=== PATIENT | male | born 1985 | race African-American/Black ===

== ENCOUNTER 2017-07-18 17:40 | Emergency (ER) | payer OTHER ==
[2017-07-18 17:48] VITALS: BP 160/100; PULSE 84; TEMP 97.9; BMI 34.9
--- NOTE | 2017-07-18 17:49 | PDOC ---
Rapid Medical Evaluation Time Seen by Provider: 07/18/17 17:42 Medical Evaluation: Allergies Allergy/AdvReac Type Severity Reaction Status Date / Time No Known Allergies Allergy Verified 10/16/15 12:48 07/18/17 17:43 The patient presents with a chief complaint of: R ankle pain. Started two days ago. States the pain started at work. Works as a broiler chef or cook. Denies trauma, falling. I have performed a brief in-person evaluation of this patient; Pertinent physical exam findings. TTP of the medial malleolus and cuboid. I have ordered the following: R ankle x-ray The patient will proceed to the ED for further evaluation.
[2017-07-18] MEDS ORDERED: KETOROLAC TROMETHAMINE 60 MG/2 ML VIAL IM ONE (18:59)
[2017-07-18] MEDS ORDERED: KETOROLAC TROMETHAMINE 60 MG/2 ML VIAL ONE (19:08)
--- NOTE | 2017-07-18 19:11 | PDOC ---
History of Present Illness - General Chief Complaint: Pain Stated Complaint: ANKLE PAIN Time Seen by Provider: 07/18/17 17:42 History Source: Patient Exam Limitations: No Limitations - History of Present Illness Initial Comments: 07/18/17 19:02 Patient is a [32 y/o male denies any significant medical history presents emergency Department with pain to plantar surface of right foot. Has pes planus. 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 Denies injury ] Past Medical History: [Denies]. Allergies: No known allergies Medications: [NOne] Family History: Non-contributory Social History: Denies smoking, alcohol use, or IVDU Review of Systems GENERAL/CONSTITUTIONAL: [No fever or chills. No weakness. No weight change.] HEAD, EYES, EARS, NOSE AND THROAT: [No change in vision. No ear pain or discharge. No sore throat. ] CARDIOVASCULAR: [No chest pain or shortness of breath.] RESPIRATORY: [No cough, wheezing, or hemoptysis.] GASTROINTESTINAL: [No nausea, vomiting, diarrhea or constipation. No rectal bleeding.] GENITOURINARY: [No dysuria, frequency, or change in urination.] MUSCULOSKELETAL: [No joint or muscle swelling or pain. No neck or back pain. Pain to plantar surface of right foot inferior to heal] SKIN : [No rash or easy bruising. No erythema or edema] NEUROLOGIC: [No headache, vertigo, loss of consciousness, or loss of sensation.] ENDOCRINE: [No increased thirst. No abnormal weight change.] HEMATOLOGIC/LYMPHATIC: [No anemia, easy bleeding, or history of blood clots.] ALLERGIC/IMMUNOLOGIC: [No hives or skin allergy. No latex allergy.] Physical Exam: GENERAL: [The patient is awake, alert, and fully oriented, in no acute distress. ] HEAD: [Normal with no signs of trauma.] EYES: [Pupils equal, round and reactive to light, extraocular movements intact, sclera anicteric, conjunctiva clear.] ENT: [Ears normal, nares patent, oropharynx clear without exudates. Moist mucous membranes. No uvula deviation] NECK: [Normal range of motion, supple without lymphadenopathy, JVD, or masses.] LUNGS: [Breath sounds equal, clear to auscultation bilaterally. No wheezes, and no crackles.] HEART: [Regular rate and rhythm, normal S1 and S2 without murmur, rub or gallop. ] ABDOMEN: [Soft, nontender, normoactive bowel sounds. No guarding, no rebound. No masses. No bruising or abrasions] MUSCULOSKELETAL: [Normal range of motion, no edema. No clubbing or cyanosis. No cords, erythema, or tenderness. Pain on palpation to plantar surface of right foot , heel there is no erythema or edema, no bruising] NEUROLOGICAL: [Cranial nerves II through XII grossly intact. Normal speech, normal gait.] SKIN: [Warm, Dry, normal turgor, no rashes or lesions noted.] Past History - Past Medical History Allergies/Adverse Reactions: Allergies Allergy/AdvReac Type Severity Reaction Status Date / Time No Known Allergies Allergy Verified 07/18/17 17:48 Home Medications: Ambulatory Orders Ibuprofen [Motrin -] 600 mg PO QID #28 tablet 07/18/17 Anemia: No Asthma: No Cancer: No Cardiac Disorders: No CVA: No COPD: No CHF: No Dementia: No Diabetes: No GI Disorders: No Disorders: No HTN: No Hypercholesterolemia: No Liver Disease: No Seizures: No Thyroid Disease: No - Immunization History Immunization Up to Date: No - Suicide/Smoking/Psychosocial Hx Smoking History: Never smoked Hx Alcohol Use: No Drug/Substance Use Hx: No Substance Use Type: None Hx Substance Use Treatment: No *Physical Exam - Vital Signs Last Vital Signs Temp Pulse Resp BP Pulse Ox 97.9 F 84 18 160/100 97 07/18/17 17:46 07/18/17 17:46 07/18/17 17:46 07/18/17 17:46 07/18/17 18:37 Medical Decision Making - Medical Decision Making 07/18/17 19:11 A/P: Patient here for evaluation of right foot pain. Clinical presentation most likely plantar fasciitis, Toradol 60 mg IM 1 given patient sent to x-ray. Will apply Scotty wrap. 07/18/17 19:33 X-ray wet read demonstrates a calcification to the calcaneus area, Case discussed with Dr. Ruano no acute fracture patient with a tendinitis will DC patient home Scotty wrap, ice to heal and anti-inflammatories follow-up with orthopedics 07/18/17 19:40 *DC/Admit/Observation/Transfer Diagnosis at time of Disposition: Tendinitis of ankle or foot - Discharge Dispostion Disposition: HOME Condition at time of disposition: Stable Admit: No - Prescriptions Prescriptions: Ibuprofen [Motrin -] 600 mg PO QID #28 tablet - Referrals Referrals: Drake Simental MD [Staff Physician] - - Patient Instructions Printed Discharge Instructions: DI for Tendinitis Additional Instructions: Please apply ice to heal Encouraged use of arch support, not until symptoms have resolved Anti-inflammatories for pain If symptoms do not start to resolve in 3 days recommend follow-up with orthopedics - Post Discharge Activity Forms/Work/School Notes: Back to Work
== END 2017-07-18 19:40 | disposition home or self-care (01) ==
LOC: JERFT 17:40
PROC: 3E0233Z Introduction of Anti-inflammatory into Muscle, Percutaneous Approach (ICD-10-PCS; principal; 2017-07-18)
DX: M77.51 Other enthesopathy of right foot and ankle (principal)
CPT/HCPCS: 73610-TC-RT; 73630-TC-RT; 99281-25

== ENCOUNTER 2018-02-07 16:09 | Emergency (ER) | payer OTHER ==
--- NOTE | 2018-02-07 17:11 | PDOC ---
Rapid Medical Evaluation Time Seen by Provider: 02/07/18 17:06 Medical Evaluation: Allergies Allergy/AdvReac Type Severity Reaction Status Date / Time No Known Allergies Allergy Verified 07/18/17 17:48 02/07/18 17:06 Pt presents to the ED for headaches on and off 3 weeks. Admits to associated dizziness and light headedness. Pt is concerned he may have diabetes as it runs in his family. Also admits to polydipsea and polyuria Exam: Ambulatory, no gross neuro deficits. AAOx3 Orders: CBC, CMP, UA Pt to proceed to ED for further evaluation. Discharge Disposition - Diagnosis Headache - Referrals - Patient Instructions - Post Discharge Activity
[2018-02-07 17:19] VITALS: BP 139/64; PULSE 85; TEMP 98.6; BMI 36.1
[2018-02-07 19:17] LABS: BASO % 0.9 % (0-2.0); EOS % 2.3 % (0-4.5); HEMATOCRIT 43.9 % (35.4-49); HEMOGLOBIN 13.9 GM/dL (11.7-16.9); LYMPH % 33.8 % (8-40); MCH 22.2 pg (25.7-33.7); MCHC 31.6 g/dl (32.0-35.9); MEAN CELL VOLUME 70.3 fl (80-96); MEAN PLT VOLUME 8.8 fl (7.5-11.1); MONO % 8.1 % (3.8-10.2); NEUT % 54.9 % (42.8-82.8); PLATELET COUNT 471 K/MM3 (134-434); RBC 6.24 M/mm3 (4.00-5.60); RDW 17.7 % (11.9-15.9); WHITE BLOOD COUNT 9.5 K/mm3 (4.0-10.0)
[2018-02-07 19:39] LABS: ANION GAP 6 (8-16); BILIRUBIN,TOTAL 0.6 mg/dL (0.2-1.0); BLOOD UREA NITROGEN 9 mg/dL (7-18); CHLORIDE 104 mmol/L (98-107); CO2 30 mmol/L (21-32); CREATININE 0.9 mg/dL (0.7-1.3); GLUCOSE,RANDOM 81 mg/dL (74-106); SGOT/AST 39 U/L (15-37); SGPT/ALT 75 U/L (12-78); SODIUM 140 mmol/L (136-145); TOT PROT 7.8 g/dl (6.4-8.2)
[2018-02-07 19:40] LABS: ALK PHOS 88 U/L (45-117)
--- NOTE | 2018-02-07 19:42 | PDOC ---
History of Present Illness - General Chief Complaint: Headache Stated Complaint: FATIGUE Time Seen by Provider: 02/07/18 17:06 History Source: Patient Exam Limitations: No Limitations Past History - Past Medical History Allergies/Adverse Reactions: Allergies Allergy/AdvReac Type Severity Reaction Status Date / Time No Known Allergies Allergy Verified 02/07/18 17:09 Home Medications: Ambulatory Orders NK [No Known Home Medication] 02/07/18 Anemia: No Asthma: No Cancer: No Cardiac Disorders: No CVA: No COPD: No CHF: No Dementia: No Diabetes: No GI Disorders: No Disorders: No HTN: No Hypercholesterolemia: No Liver Disease: No Seizures: No Thyroid Disease: No - Surgical History Cardiac Surgery: No Gastric Stapling: No - Immunization History Immunization Up to Date: No - Suicide/Smoking/Psychosocial Hx Smoking History: Never smoked Information on smoking cessation initiated: No Hx Alcohol Use: No Drug/Substance Use Hx: No Substance Use Type: None Hx Substance Use Treatment: No *Physical Exam - Vital Signs Last Vital Signs Temp Pulse Resp BP Pulse Ox 98.6 F 85 16 139/64 98 02/07/18 17:09 02/07/18 17:09 02/07/18 17:09 02/07/18 17:09 02/07/18 17:09 ED Treatment Course - LABORATORY CBC & Chemistry Diagram: 02/07/18 19:00 02/07/18 19:00 - ADDITIONAL ORDERS Additional order review: 02/07/18 19:00 RBC 6.24 H MCV 70.3 L MCHC 31.6 L RDW 17.7 H MPV 8.8 Neutrophils % 54.9 D Lymphocytes % 33.8 D Monocytes % 8.1 Eosinophils % 2.3 D Basophils % 0.9 *DC/Admit/Observation/Transfer Diagnosis at time of Disposition: Headache Qualifiers: Headache type: unspecified Headache chronicity pattern: unspecified pattern Intractability: not intractable Qualified Code(s): R51 - Headache - Referrals Referrals: Isael Orellana MD [Staff Physician] - Dipak Benavides MD [Staff Physician] - - Patient Instructions Printed Discharge Instructions: DI for Headache - Post Discharge Activity Forms/Work/School Notes: Back to Work
--- NOTE | 2018-02-07 20:26 | PDOC ---
Attending Attestation - HPI HPI: 02/07/18 20:42 The patient is a 32 year old male, with no significant PMH, who presents to the emergency department with 3 weeks of intermittent left sided headache. The patient states he experiences the left sided headaches while at work, described as a throbbing pain, rated 10/10 in intensity, with associated dizziness, tinnitus and nausea, that last for approx 5-30 minutes before resolving on its own. The patient states the left sided headaches sometimes radiates to his jaw region. The patient states he has not taken any medication for the headaches. The patient reports he is under increased stressors at work as he works as a administrative manager. The patient states he does not have the headache at presentation as they occur while he is at work. The patient denies any photophobia or phonophobia. The patient denies any auras, blurry vision or loss of vision. The patient denies any change in strength or sensation, denies any weakness or unsteady gait. The patient denies chest pain, palpitations or shortness of breath. Denies fever, chills, vomit, diarrhea and constipation. Denies dysuria, frequency, urgency and hematuria. Allergies: NKA Past surgical history: None - Physicial Exam PE: 02/07/18 20:42 GENERAL: Awake, alert, and fully oriented, in no acute distress HEAD: No signs of trauma EYES: PERRLA, EOMI, sclera anicteric, conjunctiva clear ENT: (+) Slight erythema in the left tympanic membrane. Auricles normal inspection, hearing grossly normal, nares patent, oropharynx clear without exudates. Moist mucosa NECK: Normal ROM, supple, no lymphadenopathy, JVD, or masses LUNGS: Breath sounds equal, clear to auscultation bilaterally. No wheezes, and no crackles HEART: Regular rate and rhythm, normal S1 and S2, no murmurs, rubs or gallops ABDOMEN: Soft, nontender, normoactive bowel sounds. No guarding, no rebound. No masses EXTREMITIES: Normal range of motion, no edema. No clubbing or cyanosis. No cords, erythema, or tenderness NEUROLOGICAL: Cranial nerves II through XII grossly intact. Normal speech, normal gait SKIN: Warm, Dry, normal turgor, no rashes or lesions noted. <Arron Huitron - Last Filed: 02/07/18 20:42> - Resident Resident Name: BonnyAndrei - ED Attending Attestation I have performed the following: I have examined & evaluated the patient, The case was reviewed & discussed with the resident, I agree w/resident's findings & plan - Medical Decision Making 02/07/18 21:49 Pt comes with tension headaches that occur at work. Pt states that he takes nothing for the headaches. AREVALO resolved in the ER with tylenol. Pt has no neuro deficits, no dizziness, no chest pain, palpitations, weakness. Pt has a normal exam. Pt will follow with ENT for eval of his enlarged tonsils, which may be resulting in fitful sleep, decreased O2 and sleep apnea. When questioned, pt admits that he does wake up feeling tired and having slight headaches. His tells him that he snores deeply. I discussed sleep studies with patient. Pt is stable for discharge. No indication at this time for CT imaging of the breain, given normal neuro exam, eradication of headache and all symptoms with a tylenol. <Viridiana Johnson - Last Filed: 02/07/18 21:52> Attestations - Attestations 02/07/18 20:44 Documentation prepared by Arron Huitron, acting as bacteriologist medical for Viridiana Johnson MD. <Arron Huitron - Last Filed: 02/07/18 20:42>
[2018-02-07] MEDS ORDERED: ACETAMINOPHEN 325 MG TABLET (FP) PO ONE (20:28)
[2018-02-07] MEDS ORDERED: ACETAMINOPHEN 325 MG TABLET (FP) ONE (20:33)
[2018-02-07 20:44] LABS: URINE APPEARANCE CLEAR; URINE BILIRUBIN NEGATIVE (<2.0 mg/dL); URINE COLOR YELLOW; URINE GLUCOSE (UA) NEGATIVE (NEGATIVE); URINE KETONE NEGATIVE (NEGATIVE); URINE LEUK ESTERASE NEGATIVE (NEGATIVE); URINE NITRITE NEGATIVE (NEGATIVE); URINE PROTEIN NEGATIVE (NEGATIVE); URINE UROBILINOGEN NEGATIVE mg/dL (0.2-1.0)
== END 2018-02-07 21:55 | disposition home or self-care (01) ==
LOC: JER 16:09
DX: R51 Headache (principal)
CPT/HCPCS: 36415; 80053; 81003; 85025; 99282-25

== ENCOUNTER 2018-06-04 17:07 | Observation (INO) | payer OTHER ==
--- NOTE | 2018-06-04 17:13 | PDOC ---
Rapid Medical Evaluation Time Seen by Provider: 06/04/18 17:08 Medical Evaluation: Allergies Allergy/AdvReac Type Severity Reaction Status Date / Time No Known Allergies Allergy Verified 02/07/18 17:09 06/04/18 17:09 I have performed a brief in-person evaluation of this patient. The patient presents with a chief complaint of: "I feel depressed and have been thinking of hurting myself." Pt reports wanting to shoot himself and reports access to guns. Pertinent physical exam findings: +crying. HR-128. PE- WNL I have ordered the following: labs, EKG The patient will proceed to the ED for further evaluation. Discharge Disposition - Diagnosis Depression (emotion) - Referrals - Patient Instructions - Post Discharge Activity
[2018-06-04 17:17] VITALS: BMI 34.9
--- NOTE | 2018-06-04 17:54 | PDOC ---
Attending Attestation - HPI HPI: 06/04/18 22:15 The patient is a 33-year-old male with a past medical history of childhood ADHD and gynecomastia presents to the emergency department s/p suicidal attempt. The patient reports at 8:00 am today, after dropping of his 3 children to the bus stop, the patient was in his car, put a gun to his head and contemplated suicide. The patient reports he called his sister who took the patient her house and they talked for several hours. The patient reports he voluntarily followed up at the ER for further evaluation. The patient reports hes been going through a rough past 2 months. The patient reports he found out that his of 6 years and been thought for 1 year, is to another man. The patient states he lost his job and states hes been having body image issues secondary to gynecomastia. The patient states his sister has removed all the firearms from the house. Denies having thoughts of harming others. PCP: Denies following up with a PCP. - Physicial Exam PE: 06/04/18 22:15 GENERAL: Awake, alert, and fully oriented, tearful, anxious. HEAD: No signs of trauma EYES: PERRLA, EOMI, sclera anicteric, conjunctiva clear ENT: Auricles normal inspection, hearing grossly normal, nares patent, oropharynx clear without exudates. Moist mucosa NECK: Normal ROM, supple, no lymphadenopathy, JVD, or masses LUNGS: Breath sounds equal, clear to auscultation bilaterally. No wheezes, and no crackles HEART: +tachycardia. Regular rate and rhythm, normal S1 and S2, no murmurs, rubs or gallops ABDOMEN: Soft, nontender. No guarding, no rebound. No masses EXTREMITIES: Normal range of motion, no edema. No clubbing or cyanosis. No cords, erythema, or tenderness NEUROLOGICAL: Cranial nerves II through XII grossly intact. Normal speech. SKIN: Warm, Dry, normal turgor, no rashes or lesions noted. - Medical Decision Making 06/04/18 22:15 Documentation prepared by Sana Garcia, acting as veterinary medical officer for Jannet Villalta DO. Call placed to Dr. Chang at 7:33 pm, case discussed with Dr. Chang. <Sana Garcia - Last Filed: 06/04/18 22:15> - Resident Resident Name: Kathrin Esparza - ED Attending Attestation I have performed the following: I have examined & evaluated the patient, The case was reviewed & discussed with the resident, I agree w/resident's findings & plan, Exceptions are as noted - Medical Decision Making 06/04/18 17:54 I, Dr. Jannet Villalta, DO, attest that this document has been prepared under my direction and personally reviewed by me in its entirety. I further attest, that it accurately reflects all work, treatment, procedures and medical decision -making performed by me. 06/04/18 19:47 a/p: 33yo male with SI today and plan - held a gun to his head -pt is tearful but still admits to episodes of SI -no HI -hx of gynecomastia -pt will need medical clearance for psych eval -will send labs, ekg -pt eating and drinking -will discuss with Dr. Chang 06/04/18 19:[address] Chang who recommends 1:1 and will see the patient in consult in the morning 06/04/18 22:43 pt is medically clear for psych eval 06/05/18 01:[address] in ED Obs 06/05/18 02:09 pt has been placed in ED obs pt has been signed out to the oncoming ED physician pending psych eval <Jannet Villalta - Last Filed: 06/05/18 02:10> *DC/Admit/Observation/Transfer <Sana Garcia - Last Filed: 06/04/18 22:15> - Discharge Dispostion Decision to Admit order: Yes <Jannet Villalta - Last Filed: 06/05/18 02:10> Diagnosis at time of Disposition: Depression (emotion), Suicidal ideation - Discharge Dispostion Condition at time of disposition: Fair - Referrals - Patient Instructions - Post Discharge Activity Forms/Work/School Notes: My Personal Safety Plan Heart Score/ECG Review - ECG Intrepretation Comment:: 06/04/18 19:49 sinus tach at 123, nl axis, nl interval, t wave inversions III which are nonspecific, no acute st/t wave finding <Jannet Villalta - Last Filed: 06/05/18 02:10>
--- NOTE | 2018-06-04 18:03 | PDOC ---
History of Present Illness - General Chief Complaint: Suicidal Stated Complaint: SUICIDAL Time Seen by Provider: 06/04/18 17:08 History Source: Patient - History of Present Illness Initial Comments: 06/04/18 18:03 33M w/ no significant pmhx presents to the ED after suicidal ideation. Pt voluntarily came in and presented with a family friend that he calls his sister. He states this morning after dropping off his 3 kids at the bus stop at 8am, he stayed in his car with a gun to his head wanting to kill himself. During this event, he called his "sister" crying, after which she came to him 40 min later. They proceeded to go to her house to talk everything out. Pt states yesterday he had found out that his of 6 years recently another man who is currently in nursing home which prompted his suicidal attempt this morning. He reports over the past 2 months, however, he has had marital problems. Admits to decreased concentration, loss of interest, sleeps 2-3 hours , poor appetite, and 20 lb weight loss over the past 2 months. He also admits to constantly crying. His only family is his brother who currently lives in the [place], but will be moving to [place], and his "sister" who lives in [place]. Pt does not have PCP and has never seen a psychiatrist. PMHx: ADHD (formerly on Ritalin during childhood) PSHx: Denies FHx: Mother - cx, unspecified Social: Denies tobacco, alcohol, rec drug use; Recently traveled to [place] 04/08 Has 2 sons (age 9 and 8) and 1 daughter (age 4). 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 06/04/18 18:20 06/04/18 18:22 Past History - Past Medical History Allergies/Adverse Reactions: Allergies Allergy/AdvReac Type Severity Reaction Status Date / Time No Known Allergies Allergy Verified 06/04/18 17:10 Home Medications: Ambulatory Orders NK [No Known Home Medication] 02/07/18 Anemia: No Asthma: No Cancer: No Cardiac Disorders: No CVA: No COPD: No CHF: No Dementia: No Diabetes: Yes GI Disorders: No Disorders: No HTN: No Hypercholesterolemia: No Liver Disease: No Seizures: No Thyroid Disease: No - Surgical History Cardiac Surgery: No Gastric Stapling: No - Immunization History Immunization Up to Date: No - Suicide/Smoking/Psychosocial Hx Smoking History: Never smoked Have you smoked in the past 12 months: No Information on smoking cessation initiated: No Hx Alcohol Use: No Drug/Substance Use Hx: No Substance Use Type: None Hx Substance Use Treatment: No Review of Systems - Review of Systems Able to Perform ROS?: Yes Is the patient limited Turkmen proficient: No Constitutional: No: Fever HEENTM: No: Recent change in vision Respiratory: No: Cough Cardiac (ROS): No: Chest Pain ABD/GI: Yes: Poor Appetite. No: Constipated, Diarrhea, Nausea, Vomiting : No: Dysuria, Hematuria Neurological: No: Headache, Numbness, Dizziness Psychiatric: Yes: Anxiety, Depression, Frequent Crying, Stressors, Sleep Pattern Change, Emotional Problems, Change in Appetite, Other (loss of interest in activities; decreased concentration; ) *Physical Exam - Vital Signs Last Vital Signs Temp Pulse Resp BP Pulse Ox 98.2 F 128 H 20 144/98 100 06/04/18 17:10 06/04/18 17:10 06/04/18 17:10 06/04/18 17:10 06/04/18 17:10 - Physical Exam General Appearance: Yes: Appropriately Dressed, Obese, Other (tearful) HEENT: positive: EOMI, TILA, Normal ENT Inspection, Pharynx Normal Neck: positive: Supple Respiratory/Chest: positive: Lungs Clear, Normal Breath Sounds, Other ( gynecomastia). negative: Crackles, Wheezing Cardiovascular: positive: Regular Rhythm, Regular Rate, S1, S2, Tachycardia. negative: Murmur Vascular Pulses: Dorsalis-Pedis (R): 2+, Doralis-Pedis (L): 2+ Gastrointestinal/Abdominal: positive: Normal Bowel Sounds, Soft Musculoskeletal: positive: Normal Inspection Extremity: positive: Normal Inspection, Normal Range of Motion Integumentary: positive: Normal Color, Dry, Warm Neurologic: positive: booth operator II-XII NML intact, Fully Oriented, Alert, Motor Strength 5/5, Depressed Affect ED Treatment Course - LABORATORY CBC & Chemistry Diagram: 06/05/18 06:00 06/05/18 06:00 Medical Decision Making - Medical Decision Making 06/04/18 18:29 33M w/ no significant pmhx presents with suicidal ideation. -Will order CBC/CMP, drug screen, alcohol level, U/A, TSH, acetaminophen level, salicylate level, EKG; 1:1 -Psych consult Case discussed with Dr. Villalta. -Kathrin Esparza DO -PGY1 Sign out given to Dr. Gavin. *DC/Admit/Observation/Transfer Diagnosis at time of Disposition: Depression (emotion), Suicidal ideation - Discharge Dispostion Condition at time of disposition: Fair - Referrals - Patient Instructions - Post Discharge Activity
[2018-06-04 18:12] LABS: BASO % 0.9 % (0-2.0); EOS % 2.2 % (0-4.5); HEMATOCRIT 43.6 % (35.4-49); HEMOGLOBIN 14.2 GM/dL (11.7-16.9); LYMPH % 27.9 % (8-40); MCH 22.8 pg (25.7-33.7); MCHC 32.6 g/dl (32.0-35.9); MEAN CELL VOLUME 69.8 fl (80-96); MEAN PLT VOLUME 8.9 fl (7.5-11.1); MONO % 7.5 % (3.8-10.2); NEUT % 61.5 % (42.8-82.8); PLATELET COUNT 510 K/MM3 (134-434); RBC 6.25 M/mm3 (4.00-5.60); RDW 17.4 % (11.9-15.9); WHITE BLOOD COUNT 9.8 K/mm3 (4.0-10.0)
[2018-06-04 18:35] LABS: ALBUMIN 4.2 g/dl (3.4-5.0); ALK PHOS 76 U/L (45-117); ANION GAP 8 MMOL/L (8-16); BILIRUBIN,TOTAL 0.9 mg/dL (0.2-1); BLOOD UREA NITROGEN 15 mg/dL (7-18); CALCIUM 9.3 mg/dL (8.5-10.1); CHLORIDE 102 mmol/L (98-107); CO2 28 mmol/L (21-32); CREATININE 1.3 mg/dL (0.55-1.3); GLUCOSE,RANDOM 114 mg/dL (74-106); POTASSIUM 3.6 mmol/L (3.5-5.1); SGOT/AST 61 U/L (15-37); SGPT/ALT 95 U/L (13-61); SODIUM 138 mmol/L (136-145); TOT PROT 8.2 g/dl (6.4-8.2)
--- NOTE | 2018-06-04 19:10 | PDOC ---
*Physical Exam - Vital Signs Last Vital Signs Temp Pulse Resp BP Pulse Ox 98.2 F 128 H 20 144/98 100 06/04/18 17:10 06/04/18 17:10 06/04/18 17:10 06/04/18 17:10 06/04/18 17:10 ED Treatment Course - LABORATORY CBC & Chemistry Diagram: 06/05/18 06:00 06/05/18 06:00 - ADDITIONAL ORDERS Additional order review: Laboratory Results 06/04/18 17:57 Sodium 138 Potassium 3.6 Chloride 102 Carbon Dioxide 28 Anion Gap 8 BUN 15 Creatinine 1.3 Creat Clearance w eGFR > 60 Random Glucose 114 H Calcium 9.3 Total Bilirubin 0.9 AST 61 H ALT 95 H Alkaline Phosphatase 76 Total Protein 8.2 Albumin 4.2 TSH 2.40 06/04/18 17:57 RBC 6.25 H MCV 69.8 L MCHC 32.6 RDW 17.4 H MPV 8.9 Neutrophils % 61.5 Lymphocytes % 27.9 Monocytes % 7.5 Eosinophils % 2.2 Basophils % 0.9 Medical Decision Making - Medical Decision Making Asif Coyne is a 33yo otherwise healthy man with no known psychiatric history who presents expressing suicidal ideation. He reports access to guns. - CBC and chemistry reviewed, unremarkable - UA, tox screen, salicylate level, acetaminophen level, alcohol level pending - Plan to call psych once results are returned 06/04/18 19:15 - UA, tox, salicylates, acetaminophen, alcohol negative - Psych contacted. Will see Mr Coyne in the morning - Admitted to ED obs, seen by med/surg team - Continue 1:1 sitter 06/05/18 07:28 - Patient signed out to incoming ED day shift for remainder of care Discussed with Dr Villalta. Anca Gavin PGY1 *DC/Admit/Observation/Transfer Diagnosis at time of Disposition: Depression (emotion), Suicidal ideation - Discharge Dispostion Condition at time of disposition: Fair - Referrals - Patient Instructions - Post Discharge Activity Forms/Work/School Notes: My Personal Safety Plan
[2018-06-04 20:02] LABS: COCAINE, UR NEGATIVE ng/ml (CUTOFF=300); METHADONE, UR NEGATIVE ng/ml (CUTOFF=300); OPIATES, URI NEGATIVE ng/ml (CUTOFF=300); PHENCYCLIDINE,URINE NEGATIVE ng/ml (CUTOFF=25); URINE AMPHETAMINES NEGATIVE ng/ml (CUTOFF=500); URINE BARBITURATES NEGATIVE ng/ml (CUTOFF=200); URINE BENZODIAZEPINES NEGATIVE ng/ml (CUTOFF=200)
[2018-06-04 20:10] LABS: URINE APPEARANCE CLEAR; URINE BILIRUBIN NEGATIVE (<2.0 mg/dL); URINE COLOR YELLOW; URINE GLUCOSE (UA) NEGATIVE (NEGATIVE); URINE KETONE NEGATIVE (NEGATIVE); URINE LEUK ESTERASE NEGATIVE (NEGATIVE); URINE NITRITE NEGATIVE (NEGATIVE); URINE PROTEIN NEGATIVE (NEGATIVE)
--- NOTE | 2018-06-05 04:39 | HP ---
CHIEF COMPLAINT: suicidal ideation PCP: none HISTORY OF PRESENT ILLNESS: Patient is a 33 y/o male with no medical history who presents for suicidal ideation. He was feeling depressed today and on a whim he took out his loaded gun in his car before calling his sister crying. Patient reports he has been having marital problems for the last six months and his depression begun. He states the depression has been worsening and yesterday he found out his remarried. Patient reports losing ten pounds from poor appetite. He feels he has no interests and no friends. He states his was always the one he would talk to and he feels lost with out her. He has difficulty sleeping and feels his heart pounding fast. Patient has never had any suicidal ideation in the past. Patient has had depressive episodes in the past but never needed medication for them. He state during those times he would throw himself into his work, but he recently lost his job a month ago and has been homeless. Patient states he no longer wants to and he does have future plans. Patient has no other complaints. ER course was notable for: (1) (2) (3) Recent Travel: PAST MEDICAL HISTORY: ADHD as a child, treated with ritalin PAST SURGICAL HISTORY: denies Social History: Smoking: denies Alcohol: denies Drugs: denies Family History: mother has hx of depression Allergies No Known Allergies Allergy (Verified 06/04/18 17:10) HOME MEDICATIONS: Home Medications Medication Instructions Recorded NK [No Known Home Medication] 02/07/18 REVIEW OF SYSTEMS CONSTITUTIONAL: Absent: fever, chills, diaphoresis, generalized weakness, malaise, loss of appetite, weight change HEENT: Absent: rhinorrhea, nasal congestion, throat pain, throat swelling, difficulty swallowing, mouth swelling, ear pain, eye pain, visual changes CARDIOVASCULAR: Absent: chest pain, syncope, palpitations, irregular heart rate, lightheadedness , peripheral edema RESPIRATORY: Absent: cough, shortness of breath, dyspnea with exertion, orthopnea, wheezing, stridor, hemoptysis GASTROINTESTINAL: Absent: abdominal pain, abdominal distension, nausea, vomiting, diarrhea, constipation, melena, hematochezia GENITOURINARY: Absent: dysuria, frequency, urgency, hesitancy, hematuria, flank pain, genital pain MUSCULOSKELETAL: Absent: myalgia, arthralgia, joint swelling, back pain, neck pain SKIN: Absent: rash, itching, pallor HEMATOLOGIC/IMMUNOLOGIC: Absent: easy bleeding, easy bruising, lymphadenopathy, frequent infections ENDOCRINE: Absent: unexplained weight gain, unexplained weight loss, heat intolerance, cold intolerance NEUROLOGIC: Absent: headache, focal weakness or paresthesias, dizziness, unsteady gait, seizure, mental status changes, bladder or bowel incontinence PSYCHIATRIC: depression, Absent: anxiety, suicidal or homicidal ideation, hallucinations. PHYSICAL EXAMINATION Vital Signs - 24 hr 06/04/18 06/04/18 06/04/18 17:10 19:48 23:16 Temperature 98.2 F 98 F Pulse Rate 128 H Pulse Rate [ 112 H 98 H Apical] Respiratory 20 20 20 Rate Blood Pressure 144/98 Blood Pressure 136/90 134/85 [Left Arm] O2 Sat by Pulse 100 98 100 Oximetry (%) 06/04/18 06/05/18 23:30 03:57 Temperature 98.2 F 98.0 F Pulse Rate Pulse Rate [ 88 80 Apical] Respiratory 20 18 Rate Blood Pressure Blood Pressure 144/94 140/82 [Left Arm] O2 Sat by Pulse 98 98 Oximetry (%) GENERAL: Awake, alert, and fully oriented, tearful on examination HEAD: Normal with no signs of trauma. EYES: Pupils equal, round and reactive to light, extraocular movements intact EARS, NOSE, THROAT: Moist mucous membranes. LUNGS: Breath sounds equal, clear to auscultation bilaterally. No wheezes, and no crackles. No accessory muscle use. HEART: Regular rate and rhythm, normal S1 and S2 without murmur, rub or gallop. ABDOMEN: Soft, nontender, not distended, normoactive bowel sounds, no guarding, no rebound, no masses. CHEST: patient has significant gyneocomastia, strech granados around the arm pits, acanthos nigrans at arm pits and neck LOWER EXTREMITIES: 2+ pulses, warm, well-perfused. No calf tenderness. No peripheral edema. NEUROLOGICAL: normal speech PSYCHIATRIC: Cooperative. Good eye contact. depressed mood and affect SKIN: Warm, dry, normal turgor, no rashes or lesions noted, normal capillary refill. Laboratory Results - last 24 hr CBC, BMP 06/04/18 17:57 06/04/18 17:57 Urine Test Results Urine Color Yellow 06/04/18 18:59 Urine Appearance Clear 06/04/18 18:59 Urine pH 5.0 (5.0-8.0) 06/04/18 18:59 Ur Specific [place] 1.020 (1.010-1.035) 06/04/18 18:59 Urine Protein Negative (NEGATIVE) 06/04/18 18:59 Urine Glucose (UA) Negative (NEGATIVE) 06/04/18 18:59 Urine Ketones Negative (NEGATIVE) 06/04/18 18:59 Urine Blood Negative (NEGATIVE) 06/04/18 18:59 Urine Nitrite Negative (NEGATIVE) 06/04/18 18:59 Urine Bilirubin Negative (<2.0 mg/dL) 06/04/18 18:59 Ur Leukocyte Esterase Negative (NEGATIVE) 06/04/18 18:59 ASSESSMENT/PLAN: Patient is a 33 y/o male with no medical history who presents for suicidal ideation. #suicidal ideation - patient expressed suicidal ideation 2/2 to depression earlier in the day - 1:1 watch - f/u Dr. Chang for psych consult - can consider ativan prn if patient need anxiolytic - patient currently denies wanting anxiolytic medications or anything to help with insomnia #elevates transaminits - denies alcohol use - AST: 61, ALT: 45 - abd US r/o MARIN #gynecomastia - does not take any medications to cause gynecomostia - unlikely hypothyroidism TSH: 2.40 - recommend outpatient follow up #acanthos nigricans - glucose 114 - consider DM - recommend outpatient A1C and lipid panel Visit type - Emergency Visit Emergency Visit: Yes Care time: The patient presented to the Emergency Department on the above date and was hospitalized for further evaluation of their emergent condition. - New Patient This patient is new to me today: Yes Date on this admission: 06/05/18 - Critical Care Critical Care patient: No
--- NOTE | 2018-06-05 05:58 | PN ---
Teaching Attending Note Name of Resident: Llio Matthew ATTENDING PHYSICIAN STATEMENT for ED OBSERVATION PATIENT I saw and evaluated the patient. I reviewed the resident's note and discussed the case with the resident. I agree with the resident's findings and plan as documented. SUBJECTIVE: Seen and examined; he is a 33 y/o HM with no pertinent PMH or past psych history who takes no current medications. He presents to the medicine service on ED OBS for suicidal ideation. Today he held his pistol to his head in the car due to social issues from his marriage breaking down; he did it as a suicidal gesture and did want to at the time but does not want to now and denies any current SI/HI. His sister has posession of the gun and he states he has no others. He was living out of his car the past month due to impending separation and his current apparently marrying another man. He is on 1:1 in the ER. he will need cleared by psych. No prior attempts. Does agree to feeling depressed and anxious. Denies any other ingestions. 10 sys ROS done and negative aside from HPI PMH and PSH reviewed FH asked and noncontributory Social denies any EtOH, tobacco, or drug abuse. OBJECTIVE: VS and Labs reviewed NAD, AAOx3, resting in bed with 1:1 sitter RRR s1/2 no mgr Blunted affect with depressed mood and normal behavior. Appropriate thought progression and thought content is concerned with his relationship as well as with how he is now not suicidal. CN2-12 grossly intact NC AT EOMI PERRLA NT ND +BS Labs show microcytosis with normal Hb stemming back to 2013; mild thrombocytosis evident to 510. AST/ALT is 61/95. TSH is wnl. UA unremarkable with negative EtOH, salicylates, acetaminophen. ASSESSMENT AND PLAN: Mr. Coyne presents with suicidal ideation; he is incidentally found to have mild thrombocytosis and mild AST/ALT elevation. He is on ED obs 1) SI -States not currently suicidal -1:1; clear by psych. I suspect underlying depression or adjustment disorder but will consider all options and defer to psychiatry -PRN Ativan for anxiety -Suicide precautions 2) Mild thrombocytosis -Could be reactive; will trend and monitor for improvement. No signs of any issues with clotting, etc. 3) Mild transaminitis -AST/ALT only slightly elevated; broad ddx. Alk phos and bili wnl. Trend and check RUQ US. Denies EtOH, etc. Consider OP hepatitis testing. Full Code Dispo as per psychiatry
[2018-06-05 06:25] LABS: EOS % 2.6 % (0-4.5); HEMATOCRIT 43.1 % (35.4-49); HEMOGLOBIN 13.5 GM/dL (11.7-16.9); LYMPH % 39.9 % (8-40); MCH 22.1 pg (25.7-33.7); MCHC 31.3 g/dl (32.0-35.9); MEAN CELL VOLUME 70.5 fl (80-96); MEAN PLT VOLUME 8.5 fl (7.5-11.1); MONO % 7.1 % (3.8-10.2); NEUT % 49.4 % (42.8-82.8); PLATELET COUNT 405 K/MM3 (134-434); RBC 6.11 M/mm3 (4.00-5.60); RDW 17.8 % (11.9-15.9)
[2018-06-05 06:51] LABS: ALBUMIN 3.8 g/dl (3.4-5.0); ALK PHOS 83 U/L (45-117); ANION GAP 5 MMOL/L (8-16); BILIRUBIN,TOTAL 0.5 mg/dL (0.2-1); BLOOD UREA NITROGEN 13 mg/dL (7-18); CALCIUM 9.1 mg/dL (8.5-10.1); CHLORIDE 104 mmol/L (98-107); CO2 31 mmol/L (21-32); CREATININE 1.1 mg/dL (0.55-1.3); GLUCOSE,RANDOM 104 mg/dL (74-106); SGOT/AST 52 U/L (15-37); SGPT/ALT 84 U/L (13-61); SODIUM 140 mmol/L (136-145); TOT PROT 7.5 g/dl (6.4-8.2)
[2018-06-05] MEDS ORDERED: SODIUM CHLORIDE 0.9% 500 ML INFUS.BAG IV ONE (10:17)
--- NOTE | 2018-06-05 10:17 | CON.PSY ---
Psychiatry Consult Chief Complaint: 33 year old male came to ER when he reported to have had put a gun to his head afterv learinig that his with whom he was seperatyed hadc some one> Patients Brother took his gun and gave it to Police. patient has no Psych Illness. He feels better now, no longer feels Suicidal or Homicidal. He has lot of Family support and ther are willing to suppoprt him and Patient wantys to aseek THerapy. Symptoms: reports: Depressed Mood, Suicidality - Previous Psychiatric Treatment Outpatient: None Inpatient: None - Previous Substance Abuse Treatment Outpatient: None Inpatient: None - Allergies Allergies: Allergies Allergy/AdvReac Type Severity Reaction Status Date / Time No Known Allergies Allergy Verified 06/04/18 17:10 - Current Living Status Usual Living Arrangement: With Significant Other - Current Mental Status Evaluation Appearance: Well Groomed Attitude: Cooperative - Mood Mood: Euthymic - Speech/Language Expressive: Coherent - Psychomotor Activity Psychomotor Activity: Normal - Thought Process Thought Process: Intact - Thought Content Hallucinations: Absent Delusions: Absent - Self Perception Self Perception: No Impairment - Cognition Attention: Alert Orientation: Time Memory, Immediate Recall: Intact Memory, Short Term: 3/3 Memory, Remote with Promptin/3 - Concentration Serial Sevens Intact: Yes Simple Calculations Intact: Yes - Abstraction Proverb Interpretation: Intact Judgement: Intact - Insight Insight: Intact - Impulse Control Impulse Control: Good Control - Suicidal Ideation Suicidal Ideation: No - Homicidal Ideation Homicidal Ideation: No Assessment/Plan 1) Patient is not suicidal otr Homicidal at this time. 2) discharge from Er in care of Family.\ 3) [facility] worker to provide out patient facilities for folloqw up Therapy. 4) N9om meds needed.
[2018-06-05 10:52] VITALS: BP 145/102; PULSE 82; TEMP 98
--- NOTE | 2018-06-05 11:41 | PN ---
Teaching Attending Note Name of Resident: Mahsa Kern ATTENDING PHYSICIAN STATEMENT I saw and evaluated the patient. I reviewed the resident's note and discussed the case with the resident. I agree with the resident's findings and plan as documented. SUBJECTIVE:currently asymptomatic. states he had a moment last night where he thought it would be better to end his life. admits to multiple social and family stressors which have been causing significant stress in his life and his avoidance of talking to family and friends which has been causing significant distress. never attempted in the past. does not have any thoughts of homicide/ suicide at this time. does not have a plan and states the gun has been confiscated by law enforcement and that he does not have access to any other firearms. denies Cp, SOB, fever, chills, N/V/C/D OBJECTIVE: Last Vital Signs Temp Pulse Resp BP Pulse Ox 98.0 F 82 18 145/102 H 99 06/05/18 10:50 06/05/18 10:50 06/05/18 10:50 06/05/18 10:50 06/05/18 10:50 General NAD CV S1 S2 RRR no murmur/rub/gallop Lungs CTA B/L no wheezing/rales/rhonchi abdomen soft NT/ND neg grimm sign Extremities no pedal edema ASSESSMENT AND PLAN: 33yo M wiht no PMH presented to the ER after suicide idealations 1. Major depression with suicidal idealizations- has no active thoughts or plans at this time. states he does have family and friends and a good support system but that he has been pushing them out of his life because he did not want to talk about his issues. spoke in detail about resources available to him and that he should look into, and ways of coping with stress. evaluated by psych and cleared at this time. will d/c home with resource information. pt has positive outlook and seems proactive in getting help and assistance. sister is present 2. Transaminitis- fatty infiltration seen on U/s. informed of dietary changes and should follow up with PMD for monitoring and further workup 3/ verbalized understanding and agreement with plan. d/c home
--- NOTE | 2018-06-05 11:50 | EKG ---
Test Reason : Blood Pressure : / mmHG Vent. Rate : 123 BPM Atrial Rate : 123 BPM P-R Int : 148 ms QRS Dur : 088 ms QT Int : 326 ms P-R-T Axes : 057 056 -05 degrees QTc Int : 466 ms SINUS TACHYCARDIA MINIMAL VOLTAGE CRITERIA FOR LVH, MAY BE NORMAL VARIANT T WAVE ABNORMALITY, CONSIDER INFERIOR ISCHEMIA ABNORMAL ECG NO PREVIOUS ECGS AVAILABLE Confirmed by DAVID YANEZ MD ([id number]) on 06/05/2018 11:50:38 AM Referred By: Confirmed By:DAVID YANEZ MD
--- NOTE | 2018-06-05 12:27 | DS ---
Physical Exam: SUBJECTIVE: Patient seen and examined OBJECTIVE: Vital Signs Period Temp Pulse Resp BP Sys/[place] Pulse Ox Last 24 Hr 97.9 F-98.2 F 80-128 18-20 134-152/82-102 98-100 PHYSICAL EXAM GENERAL: The patient is awake, alert, and fully oriented, in no acute distress. HEAD: Normal with no signs of trauma. EYES: PERRL, extraocular movements intact, sclera anicteric, conjunctiva clear. ENT: Ears normal, nares patent, oropharynx clear without exudates, moist mucous membranes. NECK: Trachea midline, full range of motion, supple. LUNGS: Breath sounds equal, clear to auscultation bilaterally, no wheezes, no crackles, no accessory muscle use. HEART: Regular rate and rhythm, S1, S2 without murmur, rub or gallop. ABDOMEN: Soft, nontender, nondistended, normoactive bowel sounds, no guarding, no rebound, no hepatosplenomegaly, no masses. EXTREMITIES: 2+ pulses, warm, well-perfused, no edema. NEUROLOGICAL: Cranial nerves II through XII grossly intact. Normal speech, gait not observed. PSYCH: Normal mood, normal affect. SKIN: Warm, dry, normal turgor, no rashes or lesions noted. LABS Laboratory Results - last 24 hr 06/04/18 06/04/18 06/04/18 17:57 17:57 18:59 WBC 9.8 RBC 6.25 H Hgb 14.2 Hct 43.6 MCV 69.8 L MCH 22.8 L MCHC 32.6 RDW 17.4 H Plt Count 510 H MPV 8.9 Absolute Neuts (auto) 6.0 Neutrophils % 61.5 Lymphocytes % 27.9 Monocytes % 7.5 Eosinophils % 2.2 Basophils % 0.9 Nucleated RBC % 0 Sodium 138 Potassium 3.6 Chloride 102 Carbon Dioxide 28 Anion Gap 8 BUN 15 Creatinine 1.3 Creat Clearance w eGFR > 60 Random Glucose 114 H Hemoglobin A1c % Calcium 9.3 Total Bilirubin 0.9 AST 61 H ALT 95 H Alkaline Phosphatase 76 Total Protein 8.2 Albumin 4.2 TSH 2.40 Urine Color Yellow Urine Appearance Clear Urine pH 5.0 Ur Specific [place] 1.020 Urine Protein Negative Urine Glucose (UA) Negative Urine Ketones Negative Urine Blood Negative Urine Nitrite Negative Urine Bilirubin Negative Urine Urobilinogen 2.0 Ur Leukocyte Esterase Negative Salicylates Opiates Screen Methadone Screen Acetaminophen Barbiturate Screen Phencyclidine Screen Ur Amphetamines Screen MDMA (Ecstasy) Screen Benzodiazepines Screen Cocaine Screen U Marijuana (THC) Screen Alcohol, Quantitative 06/04/18 06/04/18 06/05/18 18:59 19:09 06:00 WBC 9.0 RBC 6.11 H Hgb 13.5 Hct 43.1 MCV 70.5 L MCH 22.1 L MCHC 31.3 L RDW 17.8 H Plt Count 405 D MPV 8.5 Absolute Neuts (auto) 4.5 Neutrophils % 49.4 Lymphocytes % 39.9 D Monocytes % 7.1 Eosinophils % 2.6 Basophils % 1.0 Nucleated RBC % 0 Sodium Potassium Chloride Carbon Dioxide Anion Gap BUN Creatinine Creat Clearance w eGFR Random Glucose Hemoglobin A1c % Calcium Total Bilirubin AST ALT Alkaline Phosphatase Total Protein Albumin TSH Urine Color Urine Appearance Urine pH Ur Specific [place] Urine Protein Urine Glucose (UA) Urine Ketones Urine Blood Urine Nitrite Urine Bilirubin Urine Urobilinogen Ur Leukocyte Esterase Salicylates < 1.7 L Opiates Screen Negative Methadone Screen Negative Acetaminophen < 2.0 L Barbiturate Screen Negative Phencyclidine Screen Negative Ur Amphetamines Screen Negative MDMA (Ecstasy) Screen Negative Benzodiazepines Screen Negative Cocaine Screen Negative U Marijuana (THC) Screen Negative Alcohol, Quantitative < 3.0 06/05/18 06/05/18 06:00 06:00 WBC RBC Hgb Hct MCV MCH MCHC RDW Plt Count MPV Absolute Neuts (auto) Neutrophils % Lymphocytes % Monocytes % Eosinophils % Basophils % Nucleated RBC % Sodium 140 Potassium 4.0 Chloride 104 Carbon Dioxide 31 Anion Gap 5 L BUN 13 Creatinine 1.1 Creat Clearance w eGFR > 60 Random Glucose 104 Hemoglobin A1c % 6.3 Calcium 9.1 Total Bilirubin 0.5 AST 52 H ALT 84 H Alkaline Phosphatase 83 Total Protein 7.5 Albumin 3.8 TSH Urine Color Urine Appearance Urine pH Ur Specific [place] Urine Protein Urine Glucose (UA) Urine Ketones Urine Blood Urine Nitrite Urine Bilirubin Urine Urobilinogen Ur Leukocyte Esterase Salicylates Opiates Screen Methadone Screen Acetaminophen Barbiturate Screen Phencyclidine Screen Ur Amphetamines Screen MDMA (Ecstasy) Screen Benzodiazepines Screen Cocaine Screen U Marijuana (THC) Screen Alcohol, Quantitative HOSPITAL COURSE: Date of Admission:06/05/18 33 y/o male with no PMH presented to the ED with thoughts of suicidal ideation. patient states for the past 6 months he lost his job, his met someone and he has been very depressed. he has anhedonia, sleeping in his car, loss of appetite, and has not been sleeping. He also has not been around many people. Yesterday he found out that his had remarried and that triggered his wanting to harm himself. he has a gun and wanted to shoot himself with it, however, he called his sister and she brought him to the ER. Upon arrival to the ER patient was no longer having suicidal ideation, however he was still endorsing depressive symptoms. Utox was negative and nor abnormalities were seen in his labs. We had the psyhciatrist come and evaluate the patient, he deemed him safe to be discharged home. We provided patient with names of psychiatrists and therapists in addition to the suicide hotline number and told him to try these resources and if he still is having these thoughts than to return to the ER immediatly. Date of Discharge: 06/05/18 Minutes to complete discharge: 39 Discharge Summary Reason For Visit: SUICIDAL IDEATION Current Active Problems Depression (emotion) (Acute) Suicidal ideation (Acute) Transaminitis (Acute) Condition: Fair - Instructions Diet, Activity, Other Instructions: You were seen in the emergency room for mood disturbance. We had the psychiatrist come and evaluate you, and he cleared you to be discharged from the hospital. We advise and encourage you to seek guidance and help regarding these issues and are recommending a few options that we think you would benefit from: 1) voluntarily considering an inpatient psychiatric facility 2) seeing a licensed therapist as well as a psychiatrist as you would benefit from someone who can support you ( we have provided you with names in your area ) also the phsyician you saw in the hospital information has been provided 3) the number for the suicide hotline is : , this number is available 24 hours per day and they provide confidential support, as well as prevention resources for all of the people that call this number. we encourage you to call them first if you begin to experience anymore thoughts of harming yourself *if you continue to have thoughts of harming yourself even after trying these options, please return to the emergency room immediately You were also found to have elevated liver enzymes, you should follow up with a primary care doctor to monitor them and further testing if needed. A doctor in the area has been provided. Referrals: Isael Orellana MD [Staff Physician] - (primary care) Jaiden Chang MD [Staff Physician] - (psychaitrist) - Home Medications Comprehensive Discharge Medication List: Ambulatory Orders NK [No Known Home Medication] 02/07/18 Problem List - Problems (1) Suicidal ideation Code(s): R45.851 - SUICIDAL IDEATIONS This patient is new to me today: Yes Date on this admission: 06/05/18 Emergency Visit: Yes ED Registration Date: 06/05/18 Care time: The patient presented to the Emergency Department on the above date and was hospitalized for further evaluation of their emergent condition. Critical Care patient: No - Discharge Referral Referred to [facility] No
== END 2018-06-05 12:20 | disposition home or self-care (01) ==
LOC: JER 17:07 → JERBED 06-05 01:33
PROVIDERS: ADMIT Internal Medicine; ATTEND Internal Medicine
DX: R45.851 Suicidal ideations (principal); N62 Hypertrophy of breast; R74.0 Nonspecific elevation of levels of transaminase and lactic acid dehydrogenase [LDH]; L83 Acanthosis nigricans; D47.3 Essential (hemorrhagic) thrombocythemia; F33.9 Major depressive disorder, recurrent, unspecified
CPT/HCPCS: 36415; 76700-TC; 80053; 80307; 81003; 83036; 84443; 85025; 93005; 93010; 99284-25; G0378